=== PATIENT | male | born 1935 ===

== ENCOUNTER 2018-09-23 13:56 | Emergency (ER) | payer OTHER ==
--- NOTE | 2018-09-23 14:46 | RAD REPORT ---
EXAM DESCRIPTION: RAD - Forearm Right - 09/23/2018 2:37 pm CLINICAL HISTORY: Right arm pain status post fall FINDINGS: No fracture is seen. Radiopaque foreign body is not noted
[2018-09-23] MEDS ORDERED: LIDOCAINE 1% MPF 5 ML VIAL ONE (15:07)
[2018-09-23] MEDS ORDERED: TETANUS & DIPHTHERIA TOX,ADULT 0.5 ML VIAL ONE (15:08)
[2018-09-23] MEDS ORDERED: HYDROCODONE/APAP 5/325 MG TAB ONE ×2 (15:25→17:38)
[2018-09-23] MEDS ORDERED: BUPIVACAINE 0.5% PF 10 ML VIAL ONE (16:06)
--- NOTE | 2018-09-23 16:41 | ER ---
Nurse's Notes [facility] Name: Jerry Vitale Age: 83 yrs Sex: Male : 1935 Arrival Date: 09/23/2018 Time: 13:59 Bed 15 Private MD: Unknown, Unknown Diagnosis: Forearm Laceration Presentation: 09/23 14:20 Presenting complaint: Patient states: He was fishing and walked out into the water and aj1 he tripped and cut his arms on the oyster shells. Laceration noted to right arm, bleeding moderately. Multiple skin tears to right arm, bleeding lightly. Multiple skin tears noted to left arm, bleeding lightly. Abrasion noted to right batista. Transition of care: patient was not received from another setting of care. Complicating Factors: There are no complicating factors for this patient. Onset of symptoms was September 23, 2018. Risk Assessment: Do you want to hurt yourself or someone else? Patient reports no desire to harm self or others. Initial Sepsis Screen: Does the patient meet any 2 criteria? No. Patient's initial sepsis screen is negative. Does the patient have a suspected source of infection? No. Patient's initial sepsis screen is negative. Care prior to arrival: None. 14:20 Method Of Arrival: Ambulatory aj1 14:20 Acuity: [place] 3 aj1 Triage Assessment: 14:24 General: Appears in no apparent distress. comfortable, Behavior is calm, cooperative, aj1 appropriate for age. Pain: Complains of pain in right arm and left arm. Injury Description: Laceration sustained to palmar aspect of right forearm. Historical: - Allergies: 14:24 Iodine; aj1 - Home Meds: 14:24 Glipizide Oral [Active]; pioglitazone oral oral [Active]; pravastatin oral oral aj1 [Active]; Lisinopril Oral [Active]; - PMHx: 14:24 Hypertension; Diabetes - NIDDM; Hyperlipidemia; aj1 - Immunization history:: Last tetanus immunization: unknown, Flu vaccine is not up to date. - Social history:: Smoking status: Patient/guardian denies using tobacco. - Ebola Screening: : Patient denies travel to an Ebola-affected area in the 21 days before illness onset. Screenin:30 Abuse screen: Denies threats or abuse. Denies injuries from another. Nutritional aj1 screening: No deficits noted. Tuberculosis screening: No symptoms or risk factors identified. 17:28 Fall Risk None identified. aj1 Assessment: 14:30 General: Appears in no apparent distress. uncomfortable, Behavior is calm, cooperative, aj1 appropriate for age. Pain: Complains of pain in left arm and right arm. Neuro: Level of Consciousness is awake, alert, obeys commands, Oriented to person, place, time, situation. Cardiovascular: Patient's skin is warm and dry. Respiratory: Airway is patent Respiratory effort is even, unlabored, Respiratory pattern is regular, symmetrical. GI: No signs and/or symptoms were reported involving the gastrointestinal system. : No signs and/or symptoms were reported regarding the genitourinary system. EENT: No signs and/or symptoms were reported regarding the EENT system. Derm: No signs and/or symptoms reported regarding the dermatologic system. Skin is pink, warm \T\ dry. normal. Musculoskeletal: Range of motion: intact in all extremities. Injury Description: multiple skin tears to both arms, laceration to right arm, bleeding moderately, abrasion to right batista. 14:58 Reassessment: Patient appears in no apparent distress at this time. No changes from aj1 previously documented assessment. Patient and/or family updated on plan of care and expected duration. Pain level reassessed. Patient is alert, oriented x 3, equal unlabored respirations, skin warm/dry/pink. 15:49 Reassessment: Patient appears in no apparent distress at this time. No changes from aj1 previously documented assessment. Patient and/or family updated on plan of care and expected duration. Pain level reassessed. Patient is alert, oriented x 3, equal unlabored respirations, skin warm/dry/pink. 16:45 Reassessment: Patient and/or family updated on plan of care and expected duration. Pain aj1 level reassessed. General: Appears in no apparent distress. comfortable, Behavior is calm, cooperative, appropriate for age. Neuro: Level of Consciousness is awake, alert, obeys commands, Oriented to person, place, time, situation. Cardiovascular: Patient's skin is warm and dry. Respiratory: Airway is patent Respiratory effort is even, unlabored, Respiratory pattern is regular, symmetrical. Derm: No signs and/or symptoms reported regarding the dermatologic system. Skin is pink, warm \T\ dry. normal. Musculoskeletal: Range of motion: intact in all extremities. 17:28 Reassessment: Patient appears in no apparent distress at this time. No changes from aj1 previously documented assessment. Patient and/or family updated on plan of care and expected duration. Pain level reassessed. Patient is alert, oriented x 3, equal unlabored respirations, skin warm/dry/pink. Vital Signs: 14:24 BP 151 / 67; Pulse 69; Resp 18; Temp 98.0(O); Pulse Ox 100% on R/A; Weight 86.64 kg aj1 (R); Height 6 ft. 0 in. (182.88 cm) (R); Pain 8/10; 14:58 BP 145 / 70; Pulse 74; Resp 18; Pulse Ox 100% on R/A; aj1 15:49 BP 147 / 72; Pulse 77; Resp 18; Pulse Ox 99% on R/A; aj1 17:28 BP 147 / 68; Pulse 72; Resp 18; Pulse Ox 97% on R/A; aj1 14:24 Body Mass Index 25.90 (86.64 kg, 182.88 cm) aj1 ED Course: 13:59 Patient arrived in ED. ag5 14:01 Unknown, Unknown is Private Physician. ag5 14:01 Taras York PA is PHCP. [facility] 14:02 Neil Lopez MD is Attending Physician. [facility] 14:20 Keisha Gan, CAMACHO is Primary Nurse. aj1 14:22 Triage completed. aj1 14:24 Arm band placed on. aj1 14:30 Patient has correct armband on for positive identification. Bed in low position. Call [facility][1] light in reach. Side rails up X 1. 14:30 No provider procedures requiring assistance completed. aj1 14:40 Forearm Right XRAY In Process Unspecified. EDMS 17:28 Patient did not have IV access during this emergency room visit. aj1 Administered Medications: 14:55 Drug: Tetanus-Diphtheria Toxoid Adult 0.5 ml {[employer] Director: [employer]. Exp: aj1 05/19/2022. Lot #: [id number]. } Route: IM; Site: right deltoid; 15:48 Follow up: Response: No adverse reaction aj1 15:10 Drug: [place] 5 mg-325 mg 1 tabs Route: PO; aj1 15:48 Follow up: Response: No adverse reaction; Pain is decreased aj1 16:13 Drug: Marcaine (0.5 %) 20 ml {Note: Administered by PA. Starr} Volume: 10 ml; aj1 Route: Infiltration; 17:26 Drug: Doxycycline 100 mg Route: PO; aj1 17:27 Follow up: Response: No adverse reaction aj1 17:26 Drug: [place] 5 mg-325 mg 1 tabs Route: PO; aj1 17:27 Follow up: Response: No adverse reaction aj1 Outcome: 16:40 Discharge ordered by . cesar 17:29 Discharged to home ambulatory, with family. aj1 17:29 Condition: good 17:29 Discharge instructions given to patient, Instructed on discharge instructions, follow up and referral plans. medication usage, Demonstrated understanding of instructions, follow-up care, medications, Prescriptions given X 1. 17:29 Patient left the ED. aj1 Signatures: Dispatcher [employer] EDKeisha Pathak RN RN aj Taras York PA PA jmm Gaskin, Ajare ag5
--- NOTE | 2018-09-23 16:41 | EDPHYS ---
Physician Documentation [facility] Name: Jerry Vitale Age: 83 yrs Sex: Male : 1935 Arrival Date: 09/23/2018 Time: 13:59 Bed 15 Private MD: Unknown, Unknown ED Physician Neil Lopez HPI: 09/23 14:06 This 83 yrs old Male presents to ER via Ambulatory with complaints of Laceration To [facility] Arm, Fall Injury. 14:06 The patient has a laceration occurred. Onset: The symptoms/episode began/occurred [facility] acutely, just prior to arrival. This is an 83 year old male with a history of htn, DM, hlp that presents to the ED with complaints of lacerations and pain to his right forearm after falling onto oyster shells while fishing in salt water. Patient denies other injury. . Historical: - Allergies: 14:24 Iodine; aj1 - Home Meds: 14:24 Glipizide Oral [Active]; pioglitazone oral oral [Active]; pravastatin oral oral aj1 [Active]; Lisinopril Oral [Active]; - PMHx: 14:24 Hypertension; Diabetes - NIDDM; Hyperlipidemia; aj1 - Immunization history:: Last tetanus immunization: unknown, Flu vaccine is not up to date. - Social history:: Smoking status: Patient/guardian denies using tobacco. - Ebola Screening: : Patient denies travel to an Ebola-affected area in the 21 days before illness onset. ROS: 14:24 Constitutional: Negative for fever, chills, and weight loss, Cardiovascular: Negative jm for chest pain, palpitations, and edema, Respiratory: Negative for shortness of breath, cough, wheezing, and pleuritic chest pain. 14:24 MS/extremity: Positive for injury or acute deformity, laceration. 14:24 All other systems are negative. Exam: 14:24 Constitutional: This is a well developed, well nourished patient who is awake, alert, jmm and in no acute distress. Head/Face: atraumatic. Eyes: EOMI, no conjunctival erythema appreciated ENT: Moist Mucus Membranes Neck: Trachea midline, Supple Chest/axilla: Normal chest wall appearance and motion. Cardiovascular: Regular rate and rhythm. No edema appreciated Respiratory: Normal respirations, no respiratory distress appreciated Abdomen/GI: Non distended, soft Back: Normal ROM 14:24 Musculoskeletal/extremity: FROM noted to the right elbow, right wrist, < 2 sec dist cap refill, compartments are soft, NVI. 14:24 Skin: 4 cm laceration noted to the right forearm, no active bleeding appreciated. 14:24 Neuro: Orientation: is normal, Mentation: is normal, Memory: is normal, Gait: is steady. 14:24 Psych: Behavior/mood is pleasant, cooperative. Vital Signs: 14:24 BP 151 / 67; Pulse 69; Resp 18; Temp 98.0(O); Pulse Ox 100% on R/A; Weight 86.64 kg aj1 (R); Height 6 ft. 0 in. (182.88 cm) (R); Pain 8/10; 14:58 BP 145 / 70; Pulse 74; Resp 18; Pulse Ox 100% on R/A; aj1 15:49 BP 147 / 72; Pulse 77; Resp 18; Pulse Ox 99% on R/A; aj1 17:28 BP 147 / 68; Pulse 72; Resp 18; Pulse Ox 97% on R/A; aj1 14:24 Body Mass Index 25.90 (86.64 kg, 182.88 cm) aj1 Laceration: 14:24 Wound Repair of 4cm ( 1.6in ) subcutaneous laceration to right arm. Distal jmm neuro/vascular/tendon intact. Anesthesia: Local anesthetic administered with 6 mls of 0.5% marcaine. Wound prep: Extensive cleansing with hibiclenz by hi, Copious irrigation. Skin closed with 4 4-0 Prolene using simple sutures and sterile technique. Dressed with non-adherent dressing. Patient tolerated well. MDM: 14:06 Patient medically screened. geoffrey 16:39 Data reviewed: vital signs, nurses notes. Counseling: I had a detailed discussion with geoffrey the patient and/or guardian regarding: the historical points, exam findings, and any diagnostic results supporting the discharge/admit diagnosis, radiology results, the need for outpatient follow up, to return to the emergency department if symptoms worsen or persist or if there are any questions or concerns that arise at home. 17:26 ED course: Patient given wound infection return precautions. Patient understood and geoffrey agrees with the plan of care. . 09/23 14:09 Order name: Forearm Right XRAY; Complete Time: 14:53 [facility] Administered Medications: 14:55 Drug: Tetanus-Diphtheria Toxoid Adult 0.5 ml {[employer] Specialist: [employer]. Exp: aj1 05/19/2022. Lot #: [id number]. } Route: IM; Site: right deltoid; 15:48 Follow up: Response: No adverse reaction aj1 15:10 Drug: [place] 5 mg-325 mg 1 tabs Route: PO; aj1 15:48 Follow up: Response: No adverse reaction; Pain is decreased aj1 16:13 Drug: Marcaine (0.5 %) 20 ml {Note: Administered by PA. Starr} Volume: 10 ml; aj1 Route: Infiltration; 17:26 Drug: Doxycycline 100 mg Route: PO; aj1 17:27 Follow up: Response: No adverse reaction aj1 17:26 Drug: [place] 5 mg-325 mg 1 tabs Route: PO; aj1 17:27 Follow up: Response: No adverse reaction aj1 Disposition: 09/24 09:58 Co-signature as Attending Physician, Neil Lopez MD I agree with the assessment and louie plan of care. Disposition: 09/23/18 16:40 Discharged to Home. Impression: Forearm Laceration. - Condition is Stable. - Discharge Instructions: Laceration Care, Adult. - Prescriptions for Doxycycline Hyclate 100 mg Oral Tablet - take 1 tablet by ORAL route every 12 hours; 20 tablet. - Medication Reconciliation Form, Thank You Letter, Antibiotic Education, Prescription Opioid Use form. - Follow up: Private Physician; When: 2 - 3 days; Reason: Recheck today's complaints, Continuance of care, Re-evaluation by your physician. Signatures: Dispatcher [employer] EDKeisha Pathak RN RN Neil Stafford MD MD cha Mickail, Joel, PA PA jmm Corrections: (The following items were deleted from the chart) 09/23 17:29 16:40 09/23/2018 16:40 Discharged to Home. Impression: Forearm Laceration. Condition is aj1 Stable. Forms are Medication Reconciliation Form, Thank You Letter, Antibiotic Education, Prescription Opioid Use. Follow up: Private Physician; When: 2 - 3 days; Reason: Recheck today's complaints, Continuance of care, Re-evaluation by your physician. geoffrey
[2018-09-23] MEDS ORDERED: DOXYCYCLINE 100 MG CAP PO ONE (17:33)
== END 2018-09-23 17:29 | disposition home or self-care (01) ==
LOC: ER 13:56
PROC: 0JQG0ZZ Repair Right Lower Arm Subcutaneous Tissue and Fascia, Open Approach (ICD-10-PCS; principal; 2018-09-23)
DX: S51.811A Laceration without foreign body of right forearm, initial encounter (principal); Z23 Encounter for immunization; W17.89XA Other fall from one level to another, initial encounter; Y93.89 Activity, other specified; Y92.89 Other specified places as the place of occurrence of the external cause; Z91.048 Other nonmedicinal substance allergy status; I10 Essential (primary) hypertension; E11.9 Type 2 diabetes mellitus without complications; E78.5 Hyperlipidemia, unspecified
CPT/HCPCS: 90471; 90714; 99283